=== PATIENT | male | born 1985 ===

== ENCOUNTER 2017-03-08 20:50 | Emergency (ER) | payer SELFPAY ==
[2017-03-08 20:51] VITALS: BMI 33.5
[2017-03-08 21:03] VITALS: BP 103/66; PULSE 70; TEMP 98.1; O2SAT 99
--- NOTE | 2017-03-08 21:33 | C.PDOC ---
History Of Present Illness Patient is a 31 year old male with a PMHx of lower back pain who presents to the ER with a complaint of lower back pain that worsens with movement and ambulation. Patient denies taking any medication at home and reports using percocet and lidoderm patch in the past for relief. 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 Patient denies incontinence of bladder or bowel, dysuria, hematuria, or recent injury. Time Seen by Provider: 03/08/17 21:15 Chief Complaint (Nursing): Back Pain History/Exam Limitations: no limitations Onset/Duration Of Symptoms: Hrs Current Symptoms Are (Timing): Still Present Previous Symptoms: Back Pain (Lower), Chronic Pain Associated Symptoms: denies: Incontinence, New Weakness, New Numbness Exacerbating Factor(s): Movement, Other (Walking) Recent travel outside of the [place]: No Past Medical History Reviewed: Historical Data, Nursing Documentation, Vital Signs Vital Signs: Last Vital Signs Temp 98.1 F 03/08/17 20:59 Pulse 70 03/08/17 20:59 Resp 20 03/08/17 22:31 BP 103/66 03/08/17 20:59 Pulse Ox 99 03/08/17 23:38 - Medical History PMH: Asthma, Back Problems (herniated disk), Kidney Stones, Chronic Kidney Disease, Sexually Transmitted Disease (Chalmydia) Surgical History: No Surg Hx Family History: States: Unknown Family Hx - Social History Hx Tobacco Use: No Hx Alcohol Use: Yes Hx Substance Use: No - Immunization History Hx Tetanus Toxoid Vaccination: No Hx Influenza Vaccination: No Hx Pneumococcal Vaccination: No Review Of Systems Genitourinary: Negative for: Dysuria, Incontinence, Hematuria Musculoskeletal: Positive for: Back Pain (Lower) Physical Exam - Physical Exam Appears: Well, Non-toxic Skin: Normal Color, Warm, Dry Head: Atraumatic, Normacephalic Eye(s): bilateral: Normal Inspection, PERRL Oral Mucosa: Moist Back: No CVA Tenderness, No Vertebral Tenderness, Paraspinal Tenderness (Right) , Other (Straight leg test positve at 40 degrees.) Extremity: Normal ROM, No Tenderness Pulses: Left Femoral: Normal, Right Femoral: Normal, Left Dorsalis Pedis: Normal , Right Dorsalis Pedis: Normal Neurological/Psych: Oriented x3, Normal Speech, Normal Motor, Normal Sensation Gait: Steady ED Course And Treatment O2 Sat by Pulse Oximetry: 99 (Room air) Pulse Ox Interpretation: Normal Progress Note: Toradol IM and valium PO administered. Patient has improved with medication, patient can ambulate with a steady gait. Will be discharged home and instructed to follow up with PMD. Disposition Counseled Patient/Family Regarding: Diagnosis, Need For Followup - Disposition Referrals: [facility] at [facility] [Outside] Disposition: HOME/ ROUTINE Disposition Time: 22:17 Condition: STABLE Additional Instructions: Take meds as directed Follow up with PMD or in clinic Return to ER if worse Prescriptions: diaZEpam [Valium] 5 mg PO TID #10 tab Naproxen [Naprosyn] 1 tab PO BID PRN #25 tab PRN Reason: Pain Instructions: Sciatica (ED) Forms: Work Excuse - Clinical Impression Clinical Impression: Sciatica - Scribe Statement The provider has reviewed the documentation as recorded by the Scribkehinde Ulloa All medical record entries made by the Carlosibkehinde were at my direction and personally dictated by me. I have reviewed the chart and agree that the record accurately reflects my personal performance of the history, physical exam, medical decision making, and the department course for this patient. I have also personally directed, reviewed, and agree with the discharge instructions and disposition.
[2017-03-08 22:32] VITALS: RESP 20
== END 2017-03-08 22:31 | disposition home or self-care (01) ==
LOC: C.ER 20:50
DX: M54.40 Lumbago with sciatica, unspecified side (principal)
CPT/HCPCS: 96372; 99283; J1885

== ENCOUNTER 2017-06-01 10:34 | Emergency (ER) | payer MEDICAID, OTHER ==
[2017-06-01 10:35] VITALS: BMI 33.5
[2017-06-01 11:30] LABS: RBC URINE 2 /hpf (0-3); URINE BILIRUBIN NEGATIVE (NEGATIVE); URINE BLOOD NEGATIVE (NEGATIVE); URINE COLOR Yellow (YELLOW); URINE GLUCOSE (UA) NORMAL (Normal); URINE KETONE TRACE mg/dL (NEGATIVE); URINE LEUKOCYTE ESTERASE 1+ Leu/uL (Negative); URINE PROTEIN NEGATIVE (NEGATIVE); WBC URINE 20 /hpf (0-5)
[2017-06-01 11:31] LABS: URINE CALCIUM OXALATE CRYSTALS FEW /hpf (<OCC)
[2017-06-01] MEDS ORDERED: cefTRIAXone (Rocephin) 250 mg Inj IM STA (11:41)
--- NOTE | 2017-06-01 12:22 | C.PDOC ---
History Of Present Illness 32 y/o male presents to the ED with complaints of penile irritation and discharge, dysuria for the past few days. Pt reports having unprotected intercourse with his boyfriend 2 weeks ago. Denies fever, chills, abdominal pain or any other complaints. Time Seen by Provider: 06/01/17 11:26 Chief Complaint (Nursing): Male Genitourinary History Per: Patient History/Exam Limitations: no limitations Onset/Duration Of Symptoms: Days Current Symptoms Are (Timing): Still Present Severity: Moderate Associated Symptoms: Urinary Symptoms. denies: Fever, Chills Alleviating Factors: None Recent travel outside of the [place]: No Past Medical History Reviewed: Historical Data, Nursing Documentation, Vital Signs Vital Signs: Last Vital Signs Temp 98 F 06/01/17 10:39 Pulse 66 06/01/17 10:39 Resp 20 06/01/17 10:39 BP 131/83 06/01/17 10:39 Pulse Ox 99 06/01/17 12:24 - Medical History PMH: Asthma, Back Problems (herniated disk), Kidney Stones, Chronic Kidney Disease, Sexually Transmitted Disease (Chalmydia) Family History: States: Unknown Family Hx - Social History Hx Tobacco Use: No Hx Alcohol Use: Yes Hx Substance Use: No - Immunization History Hx Tetanus Toxoid Vaccination: No Hx Influenza Vaccination: No Hx Pneumococcal Vaccination: No Review Of Systems Constitutional: Negative for: Fever, Chills Gastrointestinal: Negative for: Abdominal Pain Genitourinary: Positive for: Dysuria, Penile Discharge, Other (penile irritation ) Skin: Negative for: Rash Physical Exam - Physical Exam Appears: Non-toxic, No Acute Distress Skin: Warm, Dry, No Rash Head: Atraumatic, Normacephalic Chest: Symmetrical Cardiovascular: Rhythm Regular Respiratory: Normal Breath Sounds, No Rales, No Rhonchi, No Wheezing Gastrointestinal/Abdominal: Soft, No Tenderness Extremity: Bilateral: Atraumatic Neurological/Psych: Oriented x3, Normal Speech, Normal Cognition ED Course And Treatment O2 Sat by Pulse Oximetry: 99 (room air) Pulse Ox Interpretation: Normal Progress Note: Ordered UA, GC/chlamydia, urine culture, recephin and zithromax. Discharged home on cipro. Instructed to follow up with PMD in 3-4 days or return to ED if worsening symptoms. Disposition - Disposition Disposition: HOME/ ROUTINE Disposition Time: 12:17 Condition: STABLE Additional Instructions: Follow up in clinic within 2-3 days. Return to ED if feel worse. 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 - Scribe Statement The provider has reviewed the documentation as recorded by the Scribe Cristobal Escalera All medical record entries made by the Carlosibkehinde were at my direction and personally dictated by me. I have reviewed the chart and agree that the record accurately reflects my personal performance of the history, physical exam, medical decision making, and the department course for this patient. I have also personally directed, reviewed, and agree with the discharge instructions and disposition.
[2017-06-01 13:08] VITALS: BP 113/75; PULSE 61; RESP 18; TEMP 97.7
[2017-06-01 13:10] VITALS: O2SAT 99
== END 2017-06-01 12:25 | disposition home or self-care (01) ==
LOC: C.ER 10:34
DX: N34.2 Other urethritis (principal)
CPT/HCPCS: 81001; 87086; 87491; 87591; 96372; 99284; J0696

== ENCOUNTER 2017-08-16 13:40 | Emergency (ER) | payer MEDICAID, OTHER ==
[2017-08-16 13:41] VITALS: BMI 33.5
[2017-08-16 13:45] VITALS: TEMP 98
[2017-08-16] MEDS ORDERED: cefTRIAXone (Rocephin) 250 mg Inj IM STA (13:51)
--- NOTE | 2017-08-16 13:53 | C.PDOC ---
History Of Present Illness 32 y/o M p/w penile irritation and dysuria. Patient states went to STD clinic yesterday and had tests performed, no results yet but dysuria became worse today. Denies fever, vomiting, dyspnea, back pain, testicular pain. Time Seen by Provider: 08/16/17 13:49 Chief Complaint (Nursing): Male Genitourinary Past Medical History Vital Signs: Last Vital Signs Temp 98 F 08/16/17 13:44 Pulse 82 08/16/17 13:44 Resp 16 08/16/17 13:44 BP 109/71 08/16/17 13:44 Pulse Ox 99 08/16/17 13:53 - Medical History PMH: Asthma, Back Problems (herniated disk), Kidney Stones, Chronic Kidney Disease, Sexually Transmitted Disease (Chalmydia) Family History: States: Unknown Family Hx - Social History Hx Tobacco Use: No Hx Alcohol Use: Yes Hx Substance Use: No - Immunization History Hx Tetanus Toxoid Vaccination: No Hx Influenza Vaccination: No Hx Pneumococcal Vaccination: No Review Of Systems Except As Marked, All Systems Reviewed And Found Negative. Constitutional: Negative for: Fever Respiratory: Negative for: Shortness of Breath Physical Exam - Physical Exam Appears: Non-toxic Skin: No Rash Head: Normacephalic Oral Mucosa: Moist Respiratory: No Accessory Muscle Use Gastrointestinal/Abdominal: Soft, No Tenderness Back: No CVA Tenderness Extremity: No Tenderness, No Swelling Neurological/Psych: Normal Speech, Normal Cognition Gait: Steady ED Course And Treatment O2 Sat by Pulse Oximetry: 99 Medical Decision Making Medical Decision Making: Will treat empirically for GC/Chlamydia. Instructed patient to follow up with STD clinic results for other STDs that may require treatment. Instructed to return to ED for worsening pain, fever, vomiting. Disposition - Disposition Disposition: HOME/ ROUTINE Disposition Time: 13:52 Condition: STABLE Instructions: Sexually Transmitted Diseases (ED) Forms: [employer] (Canadian) - Clinical Impression Clinical Impression: Urethritis
[2017-08-16 14:32] VITALS: BP 119/68; PULSE 75; RESP 18; O2SAT 98
== END 2017-08-16 14:32 | disposition home or self-care (01) ==
LOC: C.ER 13:40
DX: N34.2 Other urethritis (principal)
CPT/HCPCS: 96372; 99284; J0696

== ENCOUNTER 2017-09-19 21:47 | Emergency (ER) | payer MEDICAID ==
[2017-09-19 21:47] VITALS: BMI 33.5
[2017-09-19 21:56] VITALS: BP 105/74; PULSE 93; TEMP 97.7; O2SAT 97
[2017-09-19] MEDS ORDERED: Albuterol-Ipratrop 3 mg / 0.5 (3 ml) UD ONE ×2 (21:59→23:01)
[2017-09-19 22:09] VITALS: RESP 30
[2017-09-19] MEDS ORDERED: Albuterol-Ipratrop 3 mg / 0.5 (3 ml) UD IH SCH (22:45)
--- NOTE | 2017-09-19 23:25 | C.PDOC ---
History Of Present Illness 32 year old male with a Hx of asthma presents to the ED with cough which is associated with wheezing and subjective fever. 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 Patient reports that his symptoms exacerbated after being out in the cold weather. Denies vomiting, diarrhea, travel, chest pain, SOB. Time Seen by Provider: 09/19/17 22:10 Chief Complaint (Nursing): Shortness Of Breath History Per: Patient History/Exam Limitations: no limitations Onset/Duration Of Symptoms: Hrs Current Symptoms Are (Timing): Still Present Initiating Event: Upper Respiratory Illness Exacerbating Factor(s): Exertion Associated Symptoms: Fever. denies: Chills, Chest Pain, Dizziness Recent travel outside of the [place]: No Additional History Per: Patient Past Medical History Reviewed: Historical Data, Nursing Documentation, Vital Signs Vital Signs: Last Vital Signs Temp 97.7 F 09/19/17 21:53 Pulse 93 H 09/19/17 21:53 Resp 30 H 09/19/17 22:04 BP 105/74 09/19/17 21:53 Pulse Ox 97 09/20/17 05:15 - Medical History PMH: Asthma, Back Problems (herniated disk), Kidney Stones, Chronic Kidney Disease, Sexually Transmitted Disease (Chalmydia) Surgical History: No Surg Hx Family History: States: Unknown Family Hx - Social History Hx Tobacco Use: No Hx Alcohol Use: Yes Hx Substance Use: No - Immunization History Hx Tetanus Toxoid Vaccination: No Hx Influenza Vaccination: No Hx Pneumococcal Vaccination: No Review Of Systems Except As Marked, All Systems Reviewed And Found Negative. Constitutional: Positive for: Fever. Negative for: Chills Cardiovascular: Negative for: Chest Pain, Palpitations Respiratory: Positive for: Cough. Negative for: Shortness of Breath, Sputum Gastrointestinal: Negative for: Nausea, Vomiting, Abdominal Pain Neurological: Negative for: Weakness, Numbness Physical Exam - Physical Exam Appears: Non-toxic, No Acute Distress Skin: Normal Color, Warm, Dry, No Rash Head: Atraumatic, Normacephalic Eye(s): bilateral: Normal Inspection, PERRL, EOMI Nose: Normal, No Discharge Oral Mucosa: Moist Throat: Normal, No Erythema, No Exudate Neck: Normal ROM, Supple Chest: Symmetrical, No Tenderness Cardiovascular: Rhythm Regular, No Friction Rub, No Murmur Respiratory: No Accessory Muscle Use, No Stridor, Wheezing (Mild bilateral ) Gastrointestinal/Abdominal: Soft, No Tenderness Extremity: Normal ROM, No Pedal Edema, No Calf Tenderness, No Swelling Neurological/Psych: Oriented x3, Normal Speech, Normal Cognition, Normal Motor, Normal Sensation Gait: Steady ED Course And Treatment O2 Sat by Pulse Oximetry: 97 (On RA) Pulse Ox Interpretation: Normal Medical Decision Making Medical Decision Making: Plan: * Albuterol 3 mL INH given * Prednisone 60 mg PO given * Nebulizer treatment given On re-exam, the patient rpeorts improvement of symptoms. Lungs are CTA, heart is RRR, ambulatory in the ED with steady. Abdomen is soft, non-tender and the patient is tolerating PO well. Disposition - Disposition Referrals: [facility] at [facility] [Outside] Disposition: HOME/ ROUTINE Disposition Time: 23:23 Condition: GOOD Additional Instructions: Follow up with the medical doctor within 1-2 days. return if worsened. 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 - Scribe Statement The provider has reviewed the documentation as recorded by the Scribe Elmer Denson All medical record entries made by the Scribe were at my direction and personally dictated by me. I have reviewed the chart and agree that the record accurately reflects my personal performance of the history, physical exam, medical decision making, and the department course for this patient. I have also personally directed, reviewed, and agree with the discharge instructions and disposition.
== END 2017-09-19 23:29 | disposition home or self-care (01) ==
LOC: C.ER 21:47
DX: J45.909 Unspecified asthma, uncomplicated (principal); J06.9 Acute upper respiratory infection, unspecified

== ENCOUNTER 2017-10-20 23:51 | Emergency (ER) | payer MEDICAID ==
[2017-10-20 23:51] VITALS: BMI 33.5
[2017-10-20 23:59] VITALS: BP 131/73; PULSE 84; RESP 20; TEMP 98.3; O2SAT 95
--- NOTE | 2017-10-21 00:05 | C.PDOC ---
History Of Present Illness 32 yo male with h/o asthma c/o left eye discharge and nasal congestion since yesterday. Pt notes his left eye had discharge and was itchy, he applied tea bags and it has improved. Also notes he had persistent nasal congestion and occasional cough since yesterday. (+) smoke. Denies fever, sob, chest pain, difficulty breathing, difficulty swallowing or any other complaints. Time Seen by Provider: 10/20/17 23:58 Chief Complaint (Nursing): Cough, Cold, Congestion History Per: Patient History/Exam Limitations: no limitations Onset/Duration Of Symptoms: Days Current Symptoms Are (Timing): Better Past Medical History Vital Signs: Last Vital Signs Temp 98.3 F 10/20/17 23:57 Pulse 84 10/20/17 23:57 Resp 20 10/20/17 23:57 BP 131/73 10/20/17 23:57 Pulse Ox 95 10/21/17 00:05 - Medical History PMH: Asthma, Back Problems (herniated disk), Kidney Stones, Chronic Kidney Disease, Sexually Transmitted Disease (Chalmydia) Family History: States: Unknown Family Hx - Social History Hx Tobacco Use: No Hx Alcohol Use: Yes Hx Substance Use: No - Immunization History Hx Tetanus Toxoid Vaccination: No Hx Influenza Vaccination: No Hx Pneumococcal Vaccination: No Review Of Systems Except As Marked, All Systems Reviewed And Found Negative. Physical Exam - Physical Exam Appears: Well, Non-toxic, No Acute Distress Skin: Normal Color, Warm, Dry Head: Atraumatic, Normacephalic Eye(s): bilateral: Normal Inspection, PERRL, EOMI Ear(s): Bilateral: Normal Nose: Other ((+) nasal congestion) Throat: Normal, No Erythema, No Exudate, No Drooling Neck: Normal, Normal ROM, Supple Lymphatic: Normal Exam Chest: Symmetrical Cardiovascular: Rhythm Regular Respiratory: Normal Breath Sounds, No Accessory Muscle Use, No Wheezing Back: Normal Inspection Extremity: Normal ROM Neurological/Psych: Oriented x3, Normal Speech ED Course And Treatment O2 Sat by Pulse Oximetry: 95 Progress Note: Discussed smoking cessation and symptomatic treatment. Discussed currently no signs of conjunctivitis, if returns tomorrow, fill RX for eye drops. Discussed signs of concern and instructed to return to ERif they arise. Disposition - Disposition Disposition: HOME/ ROUTINE Disposition Time: 00:03 Condition: STABLE Additional Instructions: Follow up with your primary medical doctor or clinic in 2-5 days for further evaluation. Take medications as prescribed. Return to the emergency department at any time if symptoms persist or worsen. Prescriptions: Fluticasone Nasal [Flonase] 1 actuation NS DAILY #1 spr Guaifen/Dextromethorphan/PE [Mucinex Fast-Max Congest-Cough] 1 each PO Q6 #20 tablet Tobramycin 0.3% [Tobramycin 5 Ml] 1 drop OP Q4 #1 bottle Instructions: Upper Respiratory Infection (ED) Forms: [employer] (Bahraini), Work Excuse - Clinical Impression Clinical Impression: Upper respiratory infection
== END 2017-10-21 00:20 | disposition home or self-care (01) ==
LOC: C.ER 23:51
DX: J06.9 Acute upper respiratory infection, unspecified (principal)

== ENCOUNTER 2017-11-09 11:56 | Emergency (ER) | payer MEDICAID ==
[2017-11-09 11:56] VITALS: BMI 33.5
--- NOTE | 2017-11-09 12:21 | C.PDOC ---
History Of Present Illness 32 y/o male with hx herniated lumbar disks c/o lower back pain that started last night after lifting a mattress. pain doesn't radiate to legs, denies saddle anesthesia, no bladder or bowel incontinence, no numbness, tingling or lower extremity weakness. pt used a lidocaine patch last night without improvement, Time Seen by Provider: 11/09/17 12:08 Chief Complaint (Nursing): Back Pain History/Exam Limitations: no limitations Onset/Duration Of Symptoms: Days (1) Current Symptoms Are (Timing): Still Present Quality Of Discomfort: "Pain" Severity: Moderate Previous Symptoms: Back Pain Associated Symptoms: denies: Incontinence, New Weakness, New Numbness Exacerbating Factor(s): Movement, Sitting Past Medical History Reviewed: Historical Data, Nursing Documentation, Vital Signs Vital Signs: Last Vital Signs Temp 98.5 F 11/09/17 11:57 Pulse 94 H 11/09/17 11:57 Resp 18 11/09/17 11:57 BP 133/83 11/09/17 11:57 Pulse Ox 95 11/09/17 12:53 - Medical History PMH: Asthma, Back Problems (herniated disk), Kidney Stones, Chronic Kidney Disease, Sexually Transmitted Disease (Chalmydia) Family History: States: Unknown Family Hx - Social History Hx Tobacco Use: No Hx Alcohol Use: No Hx Substance Use: No - Immunization History Hx Tetanus Toxoid Vaccination: No Hx Influenza Vaccination: No Hx Pneumococcal Vaccination: No Review Of Systems Constitutional: Negative for: Fever, Chills Cardiovascular: Negative for: Chest Pain Gastrointestinal: Negative for: Abdominal Pain Genitourinary: Negative for: Incontinence Musculoskeletal: Positive for: Back Pain Neurological: Negative for: Weakness, Numbness Physical Exam - Physical Exam Appears: Non-toxic, Other (uncomfortable) Skin: Warm, Dry Head: Atraumatic, Normacephalic Neck: No Midline Cervical Tenderness, Supple Gastrointestinal/Abdominal: Bowel Sounds, Soft, No Tenderness Back: Normal Inspection, No CVA Tenderness, Paraspinal Tenderness (bilateral lumbar area) Extremity: Normal ROM, No Tenderness, No Calf Tenderness, No Swelling Neurological/Psych: Oriented x3, Normal Speech, Normal Cognition, Normal Motor, Normal Sensation ED Course And Treatment O2 Sat by Pulse Oximetry: 95 Medical Decision Making Medical Decision Making: pt with bilateral lumbar tenderness/pain s/p heavy lifting last night. no weakness, numbness. toradol and tylenol given, will d/c with nsaids, tylenol and muscled rerlaxant; pt drove to hospital today and will drive home by himself. will get rx of muscle relaxant to take once at home. Disposition Counseled Patient/Family Regarding: Diagnosis, Need For Followup, Rx Given - Disposition Referrals: [facility] at [facility] [Outside] Disposition: HOME/ ROUTINE Disposition Time: 13:04 Condition: IMPROVED Additional Instructions: Take medications as prescribed. No driving with muscle relaxant. You may also use lidoderm patches that you have at home. No heavy lifting. Warm or cold compresses to painful area several times a day. Follow up wiht your doctor or in medical clinic in the next few days. Return to ER for any worsening symptoms. Prescriptions: Acetaminophen [Tylenol 325mg tab] 650 mg PO Q6 #50 tab Cyclobenzaprine [Cyclobenzaprine HCl] 10 mg PO Q8 #9 tab Ibuprofen [Motrin] 600 mg PO TID #30 tab Instructions: Back Pain (ED) Forms: [facility] (Sami), General Discharge Instructions - Clinical Impression Clinical Impression: Lumbar sprain
[2017-11-09 13:13] VITALS: BP 124/88; PULSE 78; RESP 16; TEMP 97.6
[2017-11-09 14:03] VITALS: O2SAT 95
== END 2017-11-09 13:16 | disposition home or self-care (01) ==
LOC: C.ER 11:56
DX: S33.5XXA Sprain of ligaments of lumbar spine, initial encounter (principal); X50.0XXA Overexertion from strenuous movement or load, initial encounter
CPT/HCPCS: 96372; 99284; J1885

== ENCOUNTER 2017-11-11 13:02 | Emergency (ER) | payer MEDICAID ==
[2017-11-11 13:02] VITALS: BMI 33.5
[2017-11-11 13:07] VITALS: RESP 18; TEMP 97.6
[2017-11-11] MEDS ORDERED: Dexamethasone 4 mg/1 ml IM STA (13:54)
[2017-11-11] MEDS ORDERED: Lidocaine 5% Patch TD STA (13:55)
[2017-11-11] MEDS ORDERED: Dexamethasone 4 mg/1 ml ONE (14:02)
[2017-11-11] MEDS ORDERED: Lidocaine 5% Patch TD ONE (14:02)
--- NOTE | 2017-11-11 14:35 | C.PDOC ---
History Of Present Illness 32 y/o male presents to the ER complaining of pain in the lower right back which has been present for the past 5 days. Patient reports that he was moving heavy furniture when he slipped and fell hitting his lower back. Patient states that he came to [facility] 2 days ago for the pain and was given medications. He reports that the pain is still present. Patient denies any numbness, weakness, bowel and bladder incontinence, abdominal pain, dysuria, fall, and trauma. Time Seen by Provider: 11/11/17 13:18 Chief Complaint (Nursing): Pain, Chronic History Per: Patient History/Exam Limitations: no limitations Onset/Duration Of Symptoms: Days Current Symptoms Are (Timing): Still Present Severity: Moderate Past Medical History Reviewed: Historical Data, Nursing Documentation, Vital Signs Vital Signs: Last Vital Signs Temp 97.6 F 11/11/17 13:04 Pulse 88 11/11/17 14:43 Resp 18 11/11/17 14:43 BP 140/66 11/11/17 14:43 Pulse Ox 99 11/11/17 22:11 - Medical History PMH: Asthma, Back Problems (herniated disk), Kidney Stones, Chronic Kidney Disease, Sexually Transmitted Disease (Chalmydia) Surgical History: No Surg Hx Family History: States: No Known Family Hx - Social History Hx Tobacco Use: No Hx Alcohol Use: No Hx Substance Use: No - Immunization History Hx Tetanus Toxoid Vaccination: No Hx Influenza Vaccination: No Hx Pneumococcal Vaccination: No Review Of Systems Except As Marked, All Systems Reviewed And Found Negative. Gastrointestinal: Negative for: Abdominal Pain Genitourinary: Negative for: Dysuria, Incontinence Musculoskeletal: Positive for: Back Pain (lower right back pain) Neurological: Negative for: Weakness, Numbness Physical Exam - Physical Exam Appears: Non-toxic, No Acute Distress Skin: Normal Color, Warm, No Rash Head: Atraumatic, Normacephalic Eye(s): bilateral: Normal Inspection, PERRL, EOMI Nose: Normal Oral Mucosa: Moist Neck: Normal ROM, Supple Chest: Symmetrical Cardiovascular: Rhythm Regular, No Friction Rub, No Murmur Respiratory: Normal Breath Sounds, No Accessory Muscle Use Gastrointestinal/Abdominal: Normal Exam, Soft, No Tenderness Back: No CVA Tenderness, Muscle Spasm, Paraspinal Tenderness (right-sided paralumbar tenderness) Extremity: Normal ROM, No Swelling Neurological/Psych: Oriented x3, Normal Speech, Normal Cognition, Normal Motor, Normal Sensation Gait: Steady ED Course And Treatment O2 Sat by Pulse Oximetry: 99 (RA) Pulse Ox Interpretation: Normal Medical Decision Making Medical Decision Making: Plan: --Decadron 8 mg IM --Toradol 30 mg IM On re-exam, the patient reports improvement of symptoms. Lungs are CTA, heart is RRR, abdomen is soft, non-tender and patient is tolerating PO well. Follow up with the medical doctor within 1-2 days. return if worsened Disposition - Disposition Referrals: [facility] at [facility] [Outside] Disposition: HOME/ ROUTINE Disposition Time: 14:36 Condition: STABLE Additional Instructions: Follow up with the medical doctor within 1-2 days. 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 - Scribe Statement The provider has reviewed the documentation as recorded by the Rogers Yepez Provider Attestation All medical record entries made by the Carlosibe were at my direction and personally dictated by me. I have reviewed the chart and agree that the record accurately reflects my personal performance of the history, physical exam, medical decision making, and the department course for this patient. I have also personally directed, reviewed, and agree with the discharge instructions and disposition.
[2017-11-11 14:44] VITALS: BP 140/66; PULSE 88
[2017-11-11 15:22] VITALS: O2SAT 99
== END 2017-11-11 14:43 | disposition home or self-care (01) ==
LOC: C.ER 13:02
DX: S39.012D Strain of muscle, fascia and tendon of lower back, subsequent encounter (principal); W01.0XXD Fall on same level from slipping, tripping and stumbling without subsequent striking against object, subsequent encounter
CPT/HCPCS: 96372; 99285; J1100; J1885

== ENCOUNTER 2017-12-03 14:36 | Emergency (ER) | payer MEDICAID ==
[2017-12-03 14:37] VITALS: BMI 33.5
[2017-12-03 15:33] VITALS: BP 116/80; PULSE 72; RESP 18; TEMP 98.4; O2SAT 98
== END 2017-12-03 16:41 | disposition left against medical advice (07) ==
LOC: C.ER 14:36
DX: Z02.89 Encounter for other administrative examinations (principal)

== ENCOUNTER 2017-12-06 16:50 | Emergency (ER) | payer MEDICAID ==
[2017-12-06 16:58] VITALS: BMI 37.8
[2017-12-06 16:59] VITALS: BP 120/80; PULSE 75; RESP 18; TEMP 98.3; O2SAT 96
[2017-12-06] MEDS ORDERED: cefTRIAXone (Rocephin) 250 mg Inj IM STA (17:26)
--- NOTE | 2017-12-06 17:26 | C.PDOC ---
History Of Present Illness 32 year old male presents to the ER complaining of dysuria with associated suprapubic pressure-like pain for 4 days, and yellow penile discharge since yesterday. He reports he is sexually active with recent encounter where the condom broke. He denies having any fever, flank pain, scrotal or testicular pain. Time Seen by Provider: 12/06/17 17:21 Chief Complaint (Nursing): Male Genitourinary History Per: Patient History/Exam Limitations: no limitations Onset/Duration Of Symptoms: Days Current Symptoms Are (Timing): Still Present Severity: Moderate Past Medical History Reviewed: Historical Data, Nursing Documentation, Vital Signs Vital Signs: Last Vital Signs Temp 98.3 F 12/06/17 16:58 Pulse 75 12/06/17 16:58 Resp 18 12/06/17 16:58 BP 120/80 12/06/17 16:58 Pulse Ox 96 12/06/17 17:43 - Medical History PMH: Asthma, Back Problems (herniated disk), Kidney Stones, Chronic Kidney Disease, Sexually Transmitted Disease (Chalmydia) Surgical History: No Surg Hx Family History: States: No Known Family Hx - Social History Hx Tobacco Use: No Hx Alcohol Use: Yes Hx Substance Use: Yes - Immunization History Hx Tetanus Toxoid Vaccination: No Hx Influenza Vaccination: No Hx Pneumococcal Vaccination: No Review Of Systems Constitutional: Negative for: Fever, Weakness, Malaise Cardiovascular: Negative for: Palpitations Respiratory: Negative for: Cough, Shortness of Breath Gastrointestinal: Negative for: Vomiting, Abdominal Pain, Diarrhea Genitourinary: Positive for: Dysuria, Penile Discharge (yellow penile discharge) . Negative for: Scrotal Pain Skin: Negative for: Rash Neurological: Negative for: Headache Physical Exam - Physical Exam Appears: Well, Non-toxic, No Acute Distress Skin: Normal Color, Warm Head: Atraumatic, Normacephalic Eye(s): bilateral: Normal Inspection Nose: Normal Oral Mucosa: Moist Neck: Supple Chest: Symmetrical Cardiovascular: Rhythm Regular Respiratory: Normal Breath Sounds, No Accessory Muscle Use, No Rales, No Rhonchi , No Wheezing Gastrointestinal/Abdominal: Normal Exam, Soft, No Tenderness, No Distention, No Guarding Back: Normal Inspection, No CVA Tenderness Male Genital: Normal Inspection, No Testicular Tenderness, No Testicular Swelling, No Scrotal Swelling, Circumcised Extremity: Normal ROM Neurological/Psych: Oriented x3, Normal Speech Gait: Steady ED Course And Treatment O2 Sat by Pulse Oximetry: 96 (RA) Pulse Ox Interpretation: Normal Medical Decision Making Medical Decision Making: Patient with penile discharge and dysuria and recent sexual encounter where condom broke. Genital exam chaperoned by TRESSA Marie, and no discharge, swelling, rash or other abnormality. Urine collected and cultures sent to lab. Will treat prophylactically for STD with Rocephin and Zithromax. Patient given follow up instructions and to avoid intercourse and contact sexual partners, as they may need treatment. Disposition Counseled Patient/Family Regarding: Diagnosis, Need For Followup - Disposition Referrals: [facility] [Outside] Disposition: HOME/ ROUTINE Disposition Time: 17:50 Condition: STABLE Additional Instructions: You have been treated for STD with Rocephin and Zithromax Culture was sent to lab, call back for results in 2-3 days for results to confirm test. [phone] or [phone]. 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 - Scribe Statement The provider has reviewed the documentation as recorded by the Rogers Yepez Provider Attestation All medical record entries made by the Rogers were at my direction and personally dictated by me. I have reviewed the chart and agree that the record accurately reflects my personal performance of the history, physical exam, medical decision making, and the department course for this patient. I have also personally directed, reviewed, and agree with the discharge instructions and disposition.
[2017-12-06 17:38] LABS: URINE BILIRUBIN SMALL (NEGATIVE); URINE BLOOD NEGATIVE (NEGATIVE); URINE CLARITY CLEAR (Clear); URINE COLOR YELLOW (YELLOW); URINE GLUCOSE (UA) NEGATIVE (Normal)
[2017-12-06 17:39] LABS: URINE LEUKOCYTE ESTERASE NEGATIVE Leu/uL (Negative); URINE NITRATE NEGATIVE (NEGATIVE); URINE PROTEIN NEGATIVE (NEGATIVE); URINE UROBILINOGEN 0.2 mg/dL (0.2-1.0)
== END 2017-12-06 17:59 | disposition home or self-care (01) ==
LOC: C.ER 16:50
DX: N34.2 Other urethritis (principal)
CPT/HCPCS: 81001; 87491; 87591; 96372; 99284; J0696

== ENCOUNTER 2017-12-13 21:15 | Emergency (ER) | payer MEDICAID ==
[2017-12-13 21:16] VITALS: BMI 37.8
[2017-12-13 22:07] VITALS: BP 112/68; PULSE 81; RESP 20; TEMP 98.5; O2SAT 96
--- NOTE | 2017-12-13 23:48 | C.PDOC ---
History Of Present Illness Patient is a 32 year old male who was seen last week for STD and treated in the ER. States he is continuing to have dysuria. Also complaining of a headache for the past 2 days. Did not take any medications for symptom relief prior to arrival. Denies any fever, URI symptoms, abdominal pain, hematuria, dizziness, nausea, or vomiting. Patient reports history of migraines, which usually resolve when he goes to sleep. PMD: Non [facility] provider Time Seen by Provider: 12/13/17 22:34 Chief Complaint (Nursing): Male Genitourinary History Per: Patient History/Exam Limitations: no limitations Onset/Duration Of Symptoms: Days (x 1 week) Current Symptoms Are (Timing): Still Present Past Medical History Reviewed: Historical Data, Nursing Documentation, Vital Signs Vital Signs: Last Vital Signs Temp 98.5 F 12/13/17 22:02 Pulse 81 12/13/17 22:02 Resp 20 12/13/17 22:02 BP 112/68 12/13/17 22:02 Pulse Ox 96 12/13/17 23:58 - Medical History PMH: Asthma, Back Problems (herniated disk), Kidney Stones, Chronic Kidney Disease, Sexually Transmitted Disease (Chalmydia) Family History: States: No Known Family Hx - Social History Hx Tobacco Use: No Hx Alcohol Use: No Hx Substance Use: No - Immunization History Hx Tetanus Toxoid Vaccination: No Hx Influenza Vaccination: No Hx Pneumococcal Vaccination: No Review Of Systems Constitutional: Negative for: Fever, Chills ENT: Negative for: Nose Discharge, Nose Congestion Respiratory: Negative for: Cough Gastrointestinal: Negative for: Nausea, Vomiting, Abdominal Pain Genitourinary: Positive for: Dysuria. Negative for: Hematuria Neurological: Positive for: Headache. Negative for: Dizziness Physical Exam - Physical Exam Appears: Non-toxic, No Acute Distress Skin: Normal Color, Warm, Dry Head: Atraumatic, Normacephalic Eye(s): bilateral: Normal Inspection, PERRL, EOMI Oral Mucosa: Moist Neck: Normal ROM, Supple Chest: Symmetrical Respiratory: No Accessory Muscle Use Gastrointestinal/Abdominal: Normal Exam, Soft, No Tenderness Male Genital: Other (Patient declined genital exam) Extremity: Normal ROM Neurological/Psych: Oriented x3, Normal Speech ED Course And Treatment O2 Sat by Pulse Oximetry: 96 (RA) Pulse Ox Interpretation: Normal Progress Note: Reviewed genital cultures, positive for gonorrhea. Based on patient's symptoms, will d/c with doxycycline for 10 days. Patient given Motrin in ER for headache with improved symptoms. Reevaluation Time: 00:13 Reassessment Condition: Improved Disposition - Disposition Referrals: 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 - Scribe Statement The provider has reviewed the documentation as recorded by the Scribe (Rhiannon Eldridge) All medical record entries made by the Scribe were at my direction and personally dictated by me. I have reviewed the chart and agree that the record accurately reflects my personal performance of the history, physical exam, medical decision making, and the department course for this patient. I have also personally directed, reviewed, and agree with the discharge instructions and disposition.
== END 2017-12-14 00:36 | disposition home or self-care (01) ==
LOC: C.ER 21:15
DX: A54.01 Gonococcal cystitis and urethritis, unspecified (principal); G43.909 Migraine, unspecified, not intractable, without status migrainosus

== ENCOUNTER 2018-03-08 14:37 | Emergency (ER) | payer MEDICAID ==
[2018-03-08 14:37] VITALS: BMI 37.8
[2018-03-08 15:09] VITALS: BP 123/79; PULSE 85; RESP 16; TEMP 98.1; O2SAT 97
--- NOTE | 2018-03-08 15:29 | C.PDOC ---
History Of Present Illness 32 year old male presents to the ED c/o left eye discharge, intermittent temporal area pain since yesterday. Patient still c.o pain to left temporal area worse with palpation. Patient had a history of migraines but states current pain feel different than usual. Patient reports having light sensitivity. Patient took motrin at 08:00 with no improvement of symptoms. Patient denies vision loss, eye pain, FB sensation, contact use, other associated symptoms. L EYE DISCHARGE, TEMPORAL AREA PAIN SINCE YEST. INTERMIT. NO VISION LOSS, EYE REDNESS. CO PERSIST PAIN L TEMPORAL AREA, WORSE W PALPATION. HO MIGRAINES BUT CURRENT PAIN DIF THAN USUAL. +LIGHT SENSITIVITY. NO IMPROVE W MOTRIN @ 0800. DENIES EYE PAIN, FB SENSATION, CONTACTS USE. DENIES OTHER ASSOC SX EXAM MILD DIST NONTOXIC HEENT R EYE WNL; L EYE NO CONJUNCTIVITIS, PERIORB WNL; +FOCAL LIGHT SENSITIVITY L EYE, PERRLA; EOMI; +TEND L TEMPORAL AREA, NO SWELL PALP MASS NEURO INTACT SKIN NO LESIONS REMAINDER NEG Time Seen by Provider: 03/08/18 15:14 Chief Complaint (Nursing): Eye Problem History Per: Patient History/Exam Limitations: no limitations Onset/Duration Of Symptoms: Days (1) Current Symptoms Are (Timing): Still Present Recent travel outside of the [place]: No Additional History Per: Patient Past Medical History Reviewed: Historical Data, Nursing Documentation, Vital Signs Vital Signs: Last Vital Signs Temp 98.1 F 03/08/18 15:06 Pulse 85 03/08/18 15:06 Resp 16 03/08/18 15:06 BP 123/79 03/08/18 15:06 Pulse Ox 97 03/08/18 16:44 - Medical History PMH: Asthma, Back Problems (herniated disk), Kidney Stones, Chronic Kidney Disease, Sexually Transmitted Disease (Chalmydia) Surgical History: No Surg Hx Family History: States: Unknown Family Hx - Social History Hx Tobacco Use: No Hx Alcohol Use: Yes Hx Substance Use: Yes - Immunization History Hx Tetanus Toxoid Vaccination: Yes Hx Influenza Vaccination: No Hx Pneumococcal Vaccination: No Review Of Systems Constitutional: Negative for: Fever, Chills Eyes: Positive for: Pain ENT: Negative for: Nose Discharge, Nose Congestion Cardiovascular: Negative for: Chest Pain Respiratory: Negative for: Cough, Shortness of Breath Gastrointestinal: Negative for: Nausea, Vomiting Musculoskeletal: Negative for: Neck Pain Skin: Negative for: Rash Neurological: Positive for: Headache. Negative for: Dizziness Physical Exam - Physical Exam Appears: Non-toxic, In Acute Distress Skin: Normal Color, Warm, Dry, Other (no lesions) Head: Atraumatic, Normacephalic, Tenderness (left temporal area), No Swelling, Other (no palpable mass) Eye(s): bilateral: PERRL, EOMI, right: Normal Inspection, left: Other (no conjuctivitis. + light sensitivity) Ear(s): Bilateral: Normal Nose: No Discharge Oral Mucosa: Moist Neck: Normal ROM, Supple Chest: Symmetrical Cardiovascular: Rhythm Regular, No Murmur Respiratory: Normal Breath Sounds, No Rales, No Rhonchi, No Wheezing Extremity: Normal ROM, No Tenderness, No Swelling Neurological/Psych: Oriented x3, Normal Motor, Normal Sensation, Other (No focal deficits) Gait: Steady ED Course And Treatment O2 Sat by Pulse Oximetry: 97 (On RA) Pulse Ox Interpretation: Normal - CT Scan/US CT head Other Rad Studies (CT/US): Read By Radiologist, Radiology Report Reviewed CT/US Interpretation: FINDINGS: HEMORRHAGE: No intracranial hemorrhage. BRAIN : Brewer-white matter differentiation is preserved. There is no mass, mass effect or abnormal extra-axial fluid collection. There is no territorial infarction. VENTRICLES: The ventricles are normal in size, shape and configuration. CALVARIUM: The skullbase and calvarium are normal. PARANASAL SINUSES: Predominantly clear. MASTOID AIR CELLS: Predominantly clear. OTHER FINDINGS: None. IMPRESSION: No acute intracranial abnormality. Reevaluation Time: 16:43 Reassessment Condition: Improved (NEURO INTACT) Medical Decision Making Medical Decision Making: Plan: * CT head * Compazine 10 mg IM * Imitrex 6 mg SC * Toradol 60 mg IM * Tylenol 650 mg PO Disposition Counseled Patient/Family Regarding: Studies Performed, Diagnosis, Need For Followup - Disposition Referrals: YOUR,PMD [Other] Disposition: HOME/ ROUTINE Disposition Time: 16:43 Condition: IMPROVED Prescriptions: Polymyxin/Trimethoprim Sulfate [Polytrim Ophth Soln] 1 drop OD Q3H #1 bottle Instructions: Conjunctivitis (Pinkeye) (DC), Headache, Adult (DC) Forms: [employer] (Tajik), Work Excuse - Clinical Impression Clinical Impression: Headache, Conjunctivitis - Scribe Statement The provider has reviewed the documentation as recorded by the Scribe Elmer Denson All medical record entries made by the Carlosibe were at my direction and personally dictated by me. I have reviewed the chart and agree that the record accurately reflects my personal performance of the history, physical exam, medical decision making, and the department course for this patient. I have also personally directed, reviewed, and agree with the discharge instructions and disposition.
--- NOTE | 2018-03-08 16:26 | CT ---
PROCEDURE: CT HEAD WITHOUT CONTRAST. HISTORY: Left temporal headache COMPARISON: None available. TECHNIQUE: Axial computed tomography images were obtained through the head/brain without intravenous contrast. Radiation dose: Total exam DLP = 967.81 mGy-cm. This CT exam was performed using one or more of the following dose reduction techniques: Automated exposure control, adjustment of the mA and/or kV according to patient size, and/or use of iterative reconstruction technique. FINDINGS: HEMORRHAGE: No intracranial hemorrhage. BRAIN: Brewer-white matter differentiation is preserved. There is no mass, mass effect or abnormal extra-axial fluid collection. There is no territorial infarction. VENTRICLES: The ventricles are normal in size, shape and configuration. CALVARIUM: The skullbase and calvarium are normal. PARANASAL SINUSES: Predominantly clear. MASTOID AIR CELLS: Predominantly clear. OTHER FINDINGS: None. IMPRESSION: No acute intracranial abnormality.
== END 2018-03-08 17:05 | disposition home or self-care (01) ==
LOC: C.ER 14:37
DX: R51 Headache (principal); H10.9 Unspecified conjunctivitis
CPT/HCPCS: 70450; 96372; 99283; J0780; J1885; J3030

== ENCOUNTER 2018-04-09 20:19 | Emergency (ER) | payer MEDICAID ==
[2018-04-09 20:19] VITALS: BMI 37.8
[2018-04-09 20:27] VITALS: BP 109/73; PULSE 87; RESP 16; TEMP 98.5; O2SAT 98
--- NOTE | 2018-04-09 22:03 | C.PDOC ---
History Of Present Illness 33 year old male with PMHx of chronic back pain presents to the ED c/o exacerbation of his usual lower back pain. Patient reports the symptoms feel similar to previous episodes. Patient took his last Naproxen tab last night. Patient denies CP, SOB, abdominal pain, diarrhea, urinary/bowel incontinence, saddle anesthesia, weakness, numbness, sensory or motor deficits. Time Seen by Provider: 04/09/18 20:49 Chief Complaint (Nursing): Back Pain History Per: Patient History/Exam Limitations: no limitations Onset/Duration Of Symptoms: Days Current Symptoms Are (Timing): Still Present Quality Of Discomfort: "Pain" Previous Symptoms: Back Pain Associated Symptoms: None Exacerbating Factor(s): Nothing Recent travel outside of the [place]: No Additional History Per: Patient Past Medical History Reviewed: Historical Data, Nursing Documentation, Vital Signs Vital Signs: Last Vital Signs Temp 98.5 F 04/09/18 20:25 Pulse 87 04/09/18 20:25 Resp 16 04/09/18 20:25 BP 109/73 04/09/18 20:25 Pulse Ox 98 04/09/18 22:59 - Medical History PMH: Asthma, Back Problems (herniated disk), Kidney Stones, Chronic Kidney Disease, Sexually Transmitted Disease (Chalmydia) Surgical History: No Surg Hx Family History: States: Unknown Family Hx - Social History Hx Tobacco Use: No Hx Alcohol Use: Yes Hx Substance Use: Yes - Immunization History Hx Tetanus Toxoid Vaccination: Yes Hx Influenza Vaccination: No Hx Pneumococcal Vaccination: No Review Of Systems Constitutional: Negative for: Fever, Chills Cardiovascular: Negative for: Chest Pain Respiratory: Negative for: Shortness of Breath Gastrointestinal: Negative for: Vomiting, Abdominal Pain Genitourinary: Negative for: Incontinence Musculoskeletal: Positive for: Back Pain Skin: Negative for: Rash Neurological: Negative for: Weakness, Numbness Physical Exam - Physical Exam Appears: Non-toxic, No Acute Distress Skin: Normal Color, Warm, Dry Head: Atraumatic, Normacephalic Eye(s): bilateral: Normal Inspection, PERRL Neck: Normal ROM, Supple Chest: Symmetrical Cardiovascular: Rhythm Regular Respiratory: Normal Breath Sounds, No Rhonchi Gastrointestinal/Abdominal: Soft, No Tenderness Back: No CVA Tenderness, Paraspinal Tenderness (left paralumbar), Straight Leg Raising (at 40 degrees) Extremity: Normal ROM, No Tenderness, No Swelling Extremity: Bilateral: Atraumatic, Normal Color And Temperature Pulses: Left Dorsalis Pedis: Normal, Right Dorsalis Pedis: Normal Neurological/Psych: Oriented x3, Normal Speech, Normal Motor, Normal Sensation Gait: Steady ED Course And Treatment O2 Sat by Pulse Oximetry: 98 (On RA) Pulse Ox Interpretation: Normal Progress Note: Plan: - Toradol 30 mg IM. - Valium 5 mg PO. On reassessment, patient is resting comfortably, with improvement of back pain. Patient remains afebrile, with no bony tenderness, extremity numbness or weakness, or abdominal pain. Patient is ambulatory in the emergency department with no signs of discomfort. Patient was advised to follow up with physician/clinic in 1-2 days. Disposition Counseled Patient/Family Regarding: Diagnosis, Need For Followup, Rx Given - Disposition Referrals: [facility] at [facility] [Outside] Disposition: HOME/ ROUTINE Disposition Time: 22:01 Condition: STABLE Additional Instructions: Please follow up with PMD or in clinic Take meds as directed Return to ER if worse Prescriptions: Cyclobenzaprine [Cyclobenzaprine HCl] 10 mg PO HS #10 tab Naproxen [Naprosyn] 1 tab PO BID PRN #20 tab PRN Reason: Pain Instructions: Chronic Pain (DC) Forms: [facility] (Greek), Work Excuse - Clinical Impression Clinical Impression: Chronic back pain - 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 - Scribe Statement The provider has reviewed the documentation as recorded by the Scribe Elmer Denson All medical record entries made by the Scribe were at my direction and personally dictated by me. I have reviewed the chart and agree that the record accurately reflects my personal performance of the history, physical exam, medical decision making, and the department course for this patient. I have also personally directed, reviewed, and agree with the discharge instructions and disposition.
== END 2018-04-09 22:13 | disposition home or self-care (01) ==
LOC: C.ER 20:19
DX: G89.29 Other chronic pain (principal); M54.5 Low back pain
CPT/HCPCS: 96372; 99283; J1885

== ENCOUNTER 2018-04-25 21:56 | Emergency (ER) | payer MEDICAID ==
[2018-04-25 21:57] VITALS: BMI 37.8
--- NOTE | 2018-04-25 22:44 | C.PDOC ---
History Of Present Illness 33 year old male with PMH of chronic back pain and herniated disks presents to the ED with complaints of his usual lower back pain. Patient reports heavy lifting at work which may have worsened his pain. Patient took Naproxen tab last night with little relief. He reports calling PMD who is unable to see him until . He states when he gets shot here in ED feels better. Patient denies abdominal pain, diarrhea, urinary/bowel incontinence, saddle anesthesia, weakness, numbness, sensory or motor deficits. Time Seen by Provider: 04/25/18 22:33 Chief Complaint (Nursing): Back Pain History Per: Patient History/Exam Limitations: no limitations Onset/Duration Of Symptoms: Hrs Current Symptoms Are (Timing): Still Present Quality Of Discomfort: Unable To Describe Previous Symptoms: Back Pain, Chronic Pain Associated Symptoms: None Exacerbating Factor(s): Nothing Recent travel outside of the [place]: No Past Medical History Reviewed: Historical Data, Nursing Documentation, Vital Signs Vital Signs: Last Vital Signs Temp 98.4 F 04/25/18 22:26 Pulse 79 04/25/18 22:26 Resp 20 04/25/18 23:43 BP 131/70 04/25/18 22:26 Pulse Ox 98 04/26/18 00:03 - Medical History PMH: Asthma, Back Problems (herniated disk), Kidney Stones, Chronic Kidney Disease, Sexually Transmitted Disease (ChLamydia) Family History: States: Unknown Family Hx - Social History Hx Tobacco Use: No Hx Alcohol Use: Yes Hx Substance Use: Yes - Immunization History Hx Tetanus Toxoid Vaccination: Yes Hx Influenza Vaccination: No Hx Pneumococcal Vaccination: No Review Of Systems Gastrointestinal: Negative for: Abdominal Pain, Diarrhea Genitourinary: Negative for: Incontinence Musculoskeletal: Positive for: Back Pain Neurological: Negative for: Weakness, Numbness Physical Exam - Physical Exam Appears: Non-toxic Skin: Normal Color, Warm, Dry Head: Atraumatic, Normacephalic Eye(s): bilateral: Normal Inspection Cardiovascular: Rhythm Regular Respiratory: Normal Breath Sounds, No Rhonchi, No Wheezing Gastrointestinal/Abdominal: Soft, No Tenderness Back: No Vertebral Tenderness, Paraspinal Tenderness (Left paralumbar) Extremity: Normal ROM (x4) Neurological/Psych: Oriented x3, Normal Speech, Normal Motor, Normal Sensation Gait: Steady ED Course And Treatment O2 Sat by Pulse Oximetry: 98 (Room air) Pulse Ox Interpretation: Normal Medical Decision Making Medical Decision Making: Valium and toradol administered. On reevaluation, patient reports improvement of pain and is able to ambulate in the ER without any pain or difficulty, will discharge home with instructions to follow up with PMD as scheduled. Disposition Counseled Patient/Family Regarding: Diagnosis, Need For Followup, Rx Given - Disposition Disposition: HOME/ ROUTINE Disposition Time: 23:23 Condition: GOOD Additional Instructions: You can apply heat to area Take Tylenol 500mg for any pain Take pain medicine every 6-8 hours, with food to not upset stomach Take Flexeril every 8 hours as needed for muscular pain and spasm, caution may cause drowsiness Prescriptions: Cyclobenzaprine [Cyclobenzaprine HCl] 10 mg PO TID #30 tab Instructions: Low Back Pain in Adults Forms: Work Excuse - POA Present On Arrival: None - Clinical Impression Clinical Impression: Low back pain - 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 - Scribe Statement The provider has reviewed the documentation as recorded by the Scribkehinde Ulloa All medical record entries made by the Carlosibkehinde were at my direction and personally dictated by me. I have reviewed the chart and agree that the record accurately reflects my personal performance of the history, physical exam, medical decision making, and the department course for this patient. I have also personally directed, reviewed, and agree with the discharge instructions and disposition.
[2018-04-25 22:57] VITALS: BP 131/70; PULSE 79; RESP 20; TEMP 98.4; O2SAT 98
== END 2018-04-25 23:43 | disposition home or self-care (01) ==
LOC: C.ER 21:56
DX: M54.5 Low back pain (principal)
CPT/HCPCS: 96372; 99284; J1885

== ENCOUNTER 2018-06-08 17:02 | Emergency (ER) | payer SELFPAY ==
[2018-06-08 17:02] VITALS: BMI 37.8
[2018-06-08 17:12] VITALS: TEMP 98; O2SAT 98
[2018-06-08] MEDS ORDERED: cefTRIAXone (Rocephin) 250 mg Inj IM STA (17:34)
--- NOTE | 2018-06-08 17:43 | C.PDOC ---
Time Seen by Provider: 06/08/18 17:28 Chief Complaint (Nursing): Male Genitourinary Past Medical History Vital Signs: Last Vital Signs Temp 98 F 06/08/18 17:10 Pulse 90 06/08/18 17:10 Resp 16 06/08/18 17:10 BP 124/80 06/08/18 17:12 Pulse Ox 98 06/08/18 17:10 - Medical History PMH: Asthma, Back Problems (herniated disk), Kidney Stones, Chronic Kidney Disease, Sexually Transmitted Disease (Chalmydia) Family History: States: Unknown Family Hx - Social History Hx Tobacco Use: No Hx Alcohol Use: Yes Hx Substance Use: Yes - Immunization History Hx Tetanus Toxoid Vaccination: Yes Hx Influenza Vaccination: No Hx Pneumococcal Vaccination: No ED Course And Treatment O2 Sat by Pulse Oximetry: 98 Disposition Counseled Patient/Family Regarding: Studies Performed, Diagnosis, Need For Followup, Rx Given - Disposition Disposition: HOME/ ROUTINE Disposition Time: 17:43 Condition: STABLE Additional Instructions: Please contact Dr. Melgoza on Monday for your results. [phone] Prescriptions: Doxycycline Hyclate 200 mg PO BID #20 tablet.dr Forms: [employer] (Malay), General Discharge Instructions - POA Present On Arrival: None - Clinical Impression Clinical Impression: Dysuria, Penile discharge
[2018-06-08 18:13] VITALS: BP 121/78; PULSE 88; RESP 18
[2018-06-08 18:13] LABS: URINE BILIRUBIN NEGATIVE (NEGATIVE); URINE BLOOD NEGATIVE (NEGATIVE); URINE CLARITY Clear (Clear); URINE COLOR Yellow (YELLOW); URINE GLUCOSE (UA) NORMAL (Normal); URINE LEUKOCYTE ESTERASE NEG Leu/uL (Negative); URINE PROTEIN NEGATIVE (NEGATIVE)
== END 2018-06-08 18:13 | disposition home or self-care (01) ==
LOC: C.ER 17:02
DX: R30.0 Dysuria (principal); R36.9 Urethral discharge, unspecified
CPT/HCPCS: 81001; 87086; 87491; 87591; 96372; 99284; J0696

== ENCOUNTER 2018-08-18 22:16 | Emergency (ER) | payer SELFPAY ==
[2018-08-18 22:17] VITALS: BMI 37.8
[2018-08-18 22:42] VITALS: TEMP 98.6
--- NOTE | 2018-08-18 23:46 | C.PDOC ---
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 Patient denies any change in sensation and other injury. Time Seen by Provider: 08/18/18 23:29 Chief Complaint (Nursing): Lower Extremity Problem/Injury History Per: Patient History/Exam Limitations: no limitations Onset/Duration Of Symptoms: Hrs (x2) Current Symptoms Are (Timing): Still Present - Knee Description Of Injury: Struck Against Object Past Medical History Reviewed: Historical Data, Nursing Documentation, Vital Signs Vital Signs: Last Vital Signs Temp 98.6 F 08/18/18 22:37 Pulse 80 08/18/18 22:37 Resp 20 08/18/18 22:37 BP 144/84 08/18/18 22:37 Pulse Ox 98 08/18/18 22:37 - Medical History PMH: Asthma, Back Problems (herniated disk), Kidney Stones, Chronic Kidney Disease, Sexually Transmitted Disease (Chalmydia) Family History: States: Unknown Family Hx - Social History Hx Tobacco Use: No Hx Alcohol Use: Yes Hx Substance Use: Yes - Immunization History Hx Tetanus Toxoid Vaccination: Yes Hx Influenza Vaccination: No Hx Pneumococcal Vaccination: No Review Of Systems Except As Marked, All Systems Reviewed And Found Negative. Musculoskeletal: Positive for: Other (left knee pain) Neurological: Negative for: Other (change in sensation) Physical Exam - Physical Exam Appears: Well, Non-toxic, No Acute Distress Skin: Normal Color, Warm, Dry Head: Normacephalic Eye(s): bilateral: Normal Inspection, EOMI Nose: Normal Oral Mucosa: Moist Neck: Normal ROM, Supple Chest: Symmetrical Respiratory: No Accessory Muscle Use Extremity: Normal ROM (x4), Tenderness (lateral aspect of knee ), No Calf Tenderness, No Deformity, Swelling (mild to the left knee) Pulses: Left Dorsalis Pedis: Normal, Right Dorsalis Pedis: Normal Neurological/Psych: Oriented x3, Normal Speech ED Course And Treatment O2 Sat by Pulse Oximetry: 98 (RA) Pulse Ox Interpretation: Normal Progress Note: Impression: left knee pain. plans: -- XR left knee. -- toradol. -- tylenol. reassess: Patient is resting comfortably, sleeping. Knee brace is applied by medical record technician.Pt declined crutches. Patient is instructed RICE and to f/u with orthropedics. Disposition - Disposition Referrals: Yoanna Nix MD [Staff Provider] - Disposition: HOME/ ROUTINE Disposition Time: 23:44 Condition: STABLE Additional Instructions: Rest, ice and elevate the area. Follow up with the bone doctor in 1-2 days. Return to ER if symptoms persist or worsen. Prescriptions: Naproxen [Naprosyn] 1 tab PO BID PRN #20 tab PRN Reason: Pain Instructions: Knee Pain (DC) Forms: [employer] (Filipino), Work Excuse - Clinical Impression Clinical Impression: Knee pain - PA / ORDER ENTRY / Resident Statement / has reviewed & agrees with the documentation as recorded. - Scribe Statement The provider has reviewed the documentation as recorded by the Rogers Patton Do All medical record entries made by the Scribe were at my direction and pers onally dictated by me. I have reviewed the chart and agree that the record accurately reflects my personal performance of the history, physical exam, medical decision making, and the department course for this patient. I have also personally directed, reviewed, and agree with the discharge instructions and disposition.
[2018-08-19 00:07] VITALS: BP 138/78; PULSE 76; RESP 18
[2018-08-19 05:04] VITALS: O2SAT 98
--- NOTE | 2018-08-19 08:50 | RAD ---
PROCEDURE: Left Knee Radiographs. HISTORY: Trauma COMPARISON: No prior. FINDINGS: BONES: No acute displaced fracture. JOINTS: No dislocation. JOINT EFFUSION: Probable small suprapatellar joint effusion. OTHER FINDINGS: None. IMPRESSION: Probable small suprapatellar joint effusion. No acute displaced fracture or dislocation. If symptoms persist, or if there is continued clinical concern, x-ray follow-up in 7-10 days should be considered.
== END 2018-08-19 00:07 | disposition home or self-care (01) ==
LOC: C.ER 22:16
DX: M25.562 Pain in left knee (principal)
CPT/HCPCS: 73562; 96372; 99284; J1885

== ENCOUNTER 2018-08-20 19:06 | Emergency (ER) | payer SELFPAY ==
[2018-08-20 19:07] VITALS: BMI 37.8
[2018-08-20 19:52] VITALS: BP 139/89; PULSE 78; RESP 20; TEMP 99; O2SAT 99
--- NOTE | 2018-08-20 20:18 | C.PDOC ---
History Of Present Illness 33 year old male presents to the ED for evaluation of sore throat for 2 days. Patient also reports subjective fever and body aches. Denies vomiting, nausea, diarrhea, and any other associated symptoms. Time Seen by Provider: 08/20/18 20:06 Chief Complaint (Nursing): ENT Problem History Per: Patient History/Exam Limitations: no limitations Onset/Duration Of Symptoms: Days Current Symptoms Are (Timing): Still Present Past Medical History Reviewed: Historical Data, Nursing Documentation, Vital Signs Vital Signs: Last Vital Signs Temp 99 F 08/20/18 19:49 Pulse 78 08/20/18 19:49 Resp 20 08/20/18 19:49 BP 139/89 08/20/18 19:49 Pulse Ox 99 08/20/18 19:49 - Medical History PMH: Asthma, Back Problems (herniated disk), Kidney Stones, Chronic Kidney Disease, Sexually Transmitted Disease (Chalmydia) Family History: States: Unknown Family Hx - Social History Hx Tobacco Use: No Hx Alcohol Use: Yes Hx Substance Use: Yes - Immunization History Hx Tetanus Toxoid Vaccination: Yes Hx Influenza Vaccination: No Hx Pneumococcal Vaccination: No Review Of Systems Constitutional: Positive for: Fever (subjective.), Other (body aches.) ENT: Positive for: Throat Pain (sore throat.) Gastrointestinal: Negative for: Nausea, Vomiting, Diarrhea Physical Exam - Physical Exam Appears: Non-toxic Skin: Normal Color, Warm, Dry Head: Atraumatic, Normacephalic Eye(s): bilateral: Normal Inspection Ear(s): Bilateral: Normal Nose: Normal, No Flaring Oral Mucosa: Moist Throat: Erythema (mild erythema.) Neck: Normal ROM, Supple Cardiovascular: Rhythm Regular, No Murmur Respiratory: Normal Breath Sounds, No Rales, No Rhonchi, No Wheezing Neurological/Psych: Oriented x3, Normal Speech Gait: Steady ED Course And Treatment O2 Sat by Pulse Oximetry: 99 (RA) Pulse Ox Interpretation: Normal Progress Note: Patient stable for discharge home. Prescribed Benzocaine/Menthol and Naproxen. Medical Decision Making Medical Decision Making: Patient remained afebrile alert and oriented with stable vital signs during ER evaluation. No clinical signs of peritonsillar abscess or strep pharyngitis. Disposition Counseled Patient/Family Regarding: Diagnosis, Need For Followup, Rx Given - Disposition Referrals: [facility] [Outside] Disposition: HOME/ ROUTINE Disposition Time: 20:19 Condition: STABLE Additional Instructions: Take Tylenol or Motrin alternating every 4-6 hours for Fever 100.4F or higher. Rest and drink plenty of fluids to prevent dehydration. Try vanilla ice cream to improve eating/drinking, this is cold soothing and tastes good. 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 - Scribe Statement The provider has reviewed the documentation as recorded by the Scribe (Clara Kong) All medical record entries made by the Scribe were at my direction and personally dictated by me. I have reviewed the chart and agree that the record accurately reflects my personal performance of the history, physical exam, medical decision making, and the department course for this patient. I have also personally directed, reviewed, and agree with the discharge instructions and disposition.
== END 2018-08-20 21:04 | disposition home or self-care (01) ==
LOC: C.ER 19:06
DX: J02.9 Acute pharyngitis, unspecified (principal)

== ENCOUNTER 2018-09-09 17:12 | Emergency (ER) | payer SELFPAY ==
[2018-09-09 17:29] VITALS: BMI 35.1
--- NOTE | 2018-09-09 18:10 | C.PDOC ---
History Of Present Illness 33 year old male presents to the ED complaining of right shoulder pain intermittently for one week but worse for the past 2 days. Reports his shoulder was sore and then he lifted up a table and the pain became worse. Denies any numbness or tingling. States he took Tylenol with minimal relief. Time Seen by Provider: 09/09/18 18:04 Chief Complaint (Nursing): Upper Extremity Problem/Injury History Per: Patient History/Exam Limitations: no limitations Onset/Duration Of Symptoms: Days Current Symptoms Are (Timing): Still Present Quality: "Pain" Exacerbating Factor(s): Movement Past Medical History Reviewed: Historical Data, Nursing Documentation, Vital Signs Vital Signs: Last Vital Signs Temp 97.3 F L 09/09/18 17:29 Pulse 79 09/09/18 17:29 Resp 20 09/09/18 17:29 BP 102/70 09/09/18 17:29 Pulse Ox 97 09/09/18 17:29 - Medical History PMH: Asthma, Back Problems (herniated disk), Kidney Stones, Chronic Kidney Disease, Sexually Transmitted Disease (Chalmydia) Other Surgeries: hx of surgeries Family History: States: No Known Family Hx - Social History Hx Tobacco Use: No Hx Alcohol Use: Yes Hx Substance Use: Yes - Immunization History Hx Tetanus Toxoid Vaccination: Yes Hx Influenza Vaccination: No Hx Pneumococcal Vaccination: No Review Of Systems Except As Marked, All Systems Reviewed And Found Negative. Musculoskeletal: Positive for: Shoulder Pain (right) Physical Exam - Physical Exam Appears: Non-toxic Skin: Warm, Dry Head: Normacephalic Eye(s): bilateral: Normal Inspection Nose: Normal Oral Mucosa: Moist Neck: Supple Chest: Symmetrical Extremity: No Normal ROM (limited due to pain), Tenderness (right shoulder), Capillary Refill (less than 2 sec to right shoulder), No Deformity Pulses: Left Brachial: Normal, Right Brachial: Normal, Left Radial: Normal, Right Radial: Normal Neurological/Psych: Oriented x3, Normal Speech, No Normal Motor (due to pain), Normal Sensation Gait: Steady ED Course And Treatment O2 Sat by Pulse Oximetry: 97 (RA) Pulse Ox Interpretation: Normal - Other Rad XR right shoulder X-Ray: Interpreted by Me, Viewed By Me Interpretation: No acute fracture/dislocation. Calcification noted. Medical Decision Making Medical Decision Making: Plan - Toradol 60mg IM - XR right shoulder Disposition Counseled Patient/Family Regarding: Studies Performed, Diagnosis, Need For Followup, Rx Given - Disposition Referrals: Boby Carter III, MD [Staff Provider] - Disposition: HOME/ ROUTINE Disposition Time: 18:58 Condition: STABLE Additional Instructions: FOLLOW UP WITH DR. CARTER IN 1-2 DAYS FOR RE-EVALUATION AND OFFICIAL XRAY REPORT. IF SYMPTOMS GET WORSE OR ANY NEW CONCERNING SYMPTOMS DEVELOP RETURN TO ED. 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 - Scribe Statement The provider has reviewed the documentation as recorded by the Scribe Jimena Castorena All medical record entries made by the Scribe were at my direction and personally dictated by me. I have reviewed the chart and agree that the record accurately reflects my personal performance of the history, physical exam, medical decision making, and the department course for this patient. I have also personally directed, reviewed, and agree with the discharge instructions and disposition.
[2018-09-09 19:14] VITALS: BP 119/73; PULSE 78; RESP 18; TEMP 98
[2018-09-09 22:11] VITALS: O2SAT 97
--- NOTE | 2018-09-10 09:45 | RAD ---
Date of service: 09/09/2018 PROCEDURE: Radiographs of the Right Shoulder HISTORY: PAIN COMPARISON: No prior. FINDINGS: BONES: Normal. No fracture. JOINTS: Minor degenerative changes right acromioclavicular joint. SOFT TISSUES: There is a small elliptical shaped calcific density within the soft tissues adjacent to the greater tuberosity likely representing calcific tendinitis or bursitis. OTHER FINDINGS: None. IMPRESSION: No evidence of acute displaced fracture nor dislocation. Changes of calcific tendinitis or bursitis.
== END 2018-09-09 19:14 | disposition home or self-care (01) ==
LOC: C.ER 17:12
DX: S43.402A Unspecified sprain of left shoulder joint, initial encounter (principal); X50.0XXA Overexertion from strenuous movement or load, initial encounter; X50.9XXA Other and unspecified overexertion or strenuous movements or postures, initial encounter
CPT/HCPCS: 73030; 96372; 99284; J1885

== ENCOUNTER 2018-10-27 12:42 | Emergency (ER) | payer OTHER ==
[2018-10-27 12:42] VITALS: BMI 35.1
[2018-10-27 12:49] VITALS: BP 125/84; PULSE 63; TEMP 97.5; O2SAT 98
--- NOTE | 2018-10-27 13:54 | C.PDOC ---
History Of Present Illness 33 year old male presents to the ED for evaluation of yellow and green penile discharge and dysuria for 1 month. The patient reports noticing the discharge after masturbating associated with pressure and discomfort and notes he has not been sexually active for 4 months. He reports prior visit to a local hospital where he was tested for gonorrhea/chlamydia, patient has the results in the ED which are negative. Denies testicular pain, fever, nausea, vomiting, any other associated symptoms. Patient has negative results with him. Time Seen by Provider: 10/27/18 13:06 Chief Complaint (Nursing): Male Genitourinary History Per: Patient History/Exam Limitations: no limitations Onset/Duration Of Symptoms: Days Current Symptoms Are (Timing): Still Present Past Medical History Reviewed: Historical Data, Nursing Documentation, Vital Signs Vital Signs: Last Vital Signs Temp 97.5 F L 10/27/18 12:45 Pulse 63 10/27/18 12:45 Resp 20 10/27/18 12:45 BP 125/84 10/27/18 12:45 Pulse Ox 98 10/27/18 12:45 - Medical History PMH: Asthma, Back Problems (herniated disk), Kidney Stones, Chronic Kidney Disease, Sexually Transmitted Disease (Chalmydia) Family History: States: Unknown Family Hx - Social History Hx Tobacco Use: No Hx Alcohol Use: Yes Hx Substance Use: Yes - Immunization History Hx Tetanus Toxoid Vaccination: Yes Hx Influenza Vaccination: No Hx Pneumococcal Vaccination: No Review Of Systems Except As Marked, All Systems Reviewed And Found Negative. Genitourinary: Positive for: Dysuria, Penile Discharge (yellow and green.) Physical Exam - Physical Exam Appears: Well Skin: Normal Color, Warm, Dry Head: Atraumatic, Normacephalic Eye(s): bilateral: Normal Inspection, PERRL, EOMI Oral Mucosa: Moist Neck: Normal ROM, Supple Chest: Symmetrical Cardiovascular: Rhythm Regular, No Murmur Respiratory: Normal Breath Sounds, No Rales, No Rhonchi, No Wheezing Gastrointestinal/Abdominal: Normal Exam, Soft, No Tenderness Male Genital: Normal Inspection, No Testicular Swelling, No Scrotal Swelling Extremity: Bilateral: Atraumatic, Normal Color And Temperature, Normal ROM Neurological/Psych: Oriented x3, Normal Speech ED Course And Treatment O2 Sat by Pulse Oximetry: 98 (RA) Pulse Ox Interpretation: Normal Medical Decision Making Medical Decision Making: Assessment: dysuria, prostatalgia Plan: -Chlamydia/GC RNA Cipro Motrin Urinalysis Progress/Update: Patient refused rectal exam. Treated with prison cipro and pain medication. Patient advised to follow up with urologist in 2 days. Disposition Counseled Patient/Family Regarding: Studies Performed, Diagnosis, Need For Followup, Rx Given - Disposition Referrals: Nithin Rowe MD [Staff Provider] - Disposition: HOME/ ROUTINE Disposition Time: 13:52 Condition: STABLE Additional Instructions: follow up with urology within 2 days call to make an appointment take medications as prescribed return to ER if symptoms worsens or progress Prescriptions: Ciprofloxacin HCl [Cipro] 500 mg PO BID 21 Days #42 tab Naproxen [Naprosyn] 500 mg PO BID PRN #16 tab PRN Reason: Pain, Moderate (4-7) Instructions: Dysuria, Adult (DC) Forms: [employer] (Ukrainian), General Discharge Instructions - Clinical Impression Clinical Impression: Dysuria, Prostatalgia - Scribe Statement The provider has reviewed the documentation as recorded by the Scribe (Clara Kong) Provider Attestation: All medical record entries made by the Scribe were at my direction and personally dictated by me. I have reviewed the chart and agree that the record accurately reflects my personal performance of the history, physical exam, medical decision making, and the department course for this patient. I have also personally directed, reviewed, and agree with the discharge instructions and disposition.
[2018-10-27 13:55] LABS: URINE BILIRUBIN NEGATIVE (NEGATIVE); URINE BLOOD NEGATIVE (NEGATIVE); URINE CLARITY Clear (Clear); URINE COLOR Yellow (YELLOW); URINE GLUCOSE (UA) NORMAL (Normal); URINE HYALINE CAST 0-2 /lpf (0-2); URINE LEUKOCYTE ESTERASE TRACE Leu/uL (Negative); URINE PROTEIN NEGATIVE (NEGATIVE); URINE UROBILINOGEN NORMAL mg/dL (0.2-1.0)
[2018-10-27 14:11] VITALS: RESP 18
== END 2018-10-27 14:09 | disposition home or self-care (01) ==
LOC: C.ER 12:42
DX: R30.0 Dysuria (principal); N42.81 Prostatodynia syndrome

== ENCOUNTER 2019-01-06 20:13 | Emergency (ER) | payer SELFPAY ==
[2019-01-06 20:13] VITALS: BMI 35.1
[2019-01-06 20:23] VITALS: BP 110/70; PULSE 84; RESP 16; TEMP 97; O2SAT 99
--- NOTE | 2019-01-06 20:43 | C.PDOC ---
History Of Present Illness 33 y/o male comes in to ED for right upper tooth pain since earlier today. Patient states he was eating something when his filling in the right upper molar fell off, and had pain since. Patient denies any fever, trauma, discharge, or bleeding. Time Seen by Provider: 01/06/19 20:25 Chief Complaint (Nursing): Dental Pain History Per: Patient History/Exam Limitations: no limitations Onset/Duration Of Symptoms: Hrs Current Symptoms Are (Timing): Still Present Past Medical History Reviewed: Historical Data, Nursing Documentation, Vital Signs Vital Signs: Last Vital Signs Temp 97 F L 01/06/19 20:20 Pulse 84 01/06/19 20:20 Resp 16 01/06/19 20:20 BP 110/70 01/06/19 20:20 Pulse Ox 99 01/06/19 20:20 - Medical History PMH: Asthma, Back Problems (herniated disk), Kidney Stones, Chronic Kidney Disease, Sexually Transmitted Disease (Chalmydia) Family History: States: No Known Family Hx - Social History Hx Tobacco Use: No Hx Alcohol Use: Yes Hx Substance Use: Yes - Immunization History Hx Tetanus Toxoid Vaccination: Yes Hx Influenza Vaccination: No Hx Pneumococcal Vaccination: No Review Of Systems Constitutional: Negative for: Fever, Chills ENT: Positive for: Other (Right upper tooth pain, no discharge or bleeding) Neurological: Negative for: Headache Physical Exam - Physical Exam Appears: Non-toxic, In Acute Distress (moderate), Other (speaking full sentences) Skin: Warm, Dry Head: Atraumatic, Normacephalic Eye(s): bilateral: Normal Inspection Oral Mucosa: Moist Tongue: Normal Appearing Lips: Normal Appearing Teeth: Other (Tooth #2 has large caries and is tender to palpation) Gingiva: No Erythema, No Swelling Neck: Supple Cardiovascular: Rhythm Regular, No Murmur Respiratory: Normal Breath Sounds, No Rales, No Rhonchi, No Wheezing Extremity: Bilateral: Atraumatic, Normal Color And Temperature Neurological/Psych: Oriented x3, Normal Speech ED Course And Treatment O2 Sat by Pulse Oximetry: 99 (RA) Pulse Ox Interpretation: Normal Progress Note: Patient was given toradol and viscous lidocaine. Will be discharged home. Patient is to follow up with dentist within 1 week. Disposition Counseled Patient/Family Regarding: Diagnosis, Need For Followup, Rx Given - Disposition Referrals: [facility] [Outside] Disposition: HOME/ ROUTINE Disposition Time: 21:00 Condition: STABLE Additional Instructions: FOLLOW UP WITH YOUR DENTIST WITHIN 1 WEEK USE PAIN MEDICATIONS NEEDED RETURN TO ER IF SYMPTOMS WORSEN Prescriptions: Lidocaine 2% Viscous 10 ml MM Q6 PRN #1 bottle PRN Reason: PAIN Naproxen [Naprosyn] 1 tab PO BID PRN #25 tab PRN Reason: Pain traMADol [Ultram] 50 mg PO BID PRN #12 tab PRN Reason: pain Instructions: Dental Pain (DC) Forms: [employer] (Albanian), Work Excuse Print Language: VATICAN CITIZEN - Clinical Impression Clinical Impression: Pain, dental - Scribe Statement The provider has reviewed the documentation as recorded by the Rogers Silverio Provider Attestation: All medical record entries made by the Rogers were at my direction and personally dictated by me. I have reviewed the chart and agree that the record accurately reflects my personal performance of the history, physical exam, medical decision making, and the department course for this patient. I have also personally directed, reviewed, and agree with the discharge instructions and disposition.
== END 2019-01-06 21:15 | disposition home or self-care (01) ==
LOC: C.ER 20:13
DX: K08.89 Other specified disorders of teeth and supporting structures (principal)
CPT/HCPCS: 96372; 99283; J1885

== ENCOUNTER 2019-02-15 14:39 | Emergency (ER) | payer SELFPAY ==
[2019-02-15 14:57] VITALS: BMI 37.5
--- NOTE | 2019-02-15 15:43 | C.PDOC ---
History Of Present Illness 33-year-old male, whose PMHx includes asthma, presents to the ED for evaluation of sore throat, nasal congestion and dry cough that had gradual onset over the past week. Patient denies high fever, lethargy, drooling, neck pain, chills, bodyaches, chest pain, dyspnea, SOB, wheezing, abdominal pain, V/D, UTI symptoms, rash, recent travel or known sick contacts. Ambulates to ED for evaluation, not in any apparent distress. Time Seen by Provider: 02/15/19 15:17 Chief Complaint (Nursing): ENT Problem History Per: Patient History/Exam Limitations: None Onset/Duration Of Symptoms: Gradual, Other (one week ) Past Medical History Reviewed: Historical Data, Nursing Documentation, Vital Signs Vital Signs: Last Vital Signs Temp 98.4 F 02/15/19 14:57 Pulse 76 02/15/19 14:57 Resp 16 02/15/19 14:57 BP 125/86 02/15/19 14:57 Pulse Ox 97 02/15/19 14:57 - Medical History PMH: Asthma, Back Problems (herniated disk), Kidney Stones, Chronic Kidney Disease, Sexually Transmitted Disease (Chalmydia) Surgical History: No Surg Hx Family History: States: Unknown Family Hx - Social History Hx Tobacco Use: No Hx Alcohol Use: Yes Hx Substance Use: Yes - Immunization History Hx Tetanus Toxoid Vaccination: Yes Hx Influenza Vaccination: No Hx Pneumococcal Vaccination: No Review Of Systems Constitutional: Negative for: Fever, Chills, Other (lethargy ) ENT: Positive for: Nose Congestion, Throat Pain, Other (drooling ) Cardiovascular: Negative for: Chest Pain Respiratory: Positive for: Cough. Negative for: Shortness of Breath, Sputum, Wheezing Gastrointestinal: Negative for: Nausea, Vomiting, Abdominal Pain, Diarrhea Genitourinary: Negative for: Dysuria, Frequency, Hematuria Musculoskeletal: Negative for: Neck Pain, Other (body aches ) Skin: Negative for: Rash Physical Exam - Physical Exam Appears: Well, Non-toxic, No Acute Distress Skin: Normal Color, Warm, Dry, No Rash Head: Normacephalic Eye(s): bilateral: PERRL Ear(s): Bilateral: Normal Nose: No Flaring, No Discharge, Other (nasal congestion bilterally ) Oral Mucosa: Moist, No Drooling Lips: Normal Appearing Throat: Erythema, No Exudate, No Drooling, Other (pharyngeal and tonsillar erythema and edema ) Neck: Trachea Midline, No Midline Cervical Tenderness, No Paracervical Tenderness, Supple, No Other (meningeal sign ) Cardiovascular: Rhythm Regular, No Murmur, No JVD Respiratory: No Decreased Breath Sounds, No Accessory Muscle Use, No Rales, No Rhonchi, No Stridor, No Wheezing Gastrointestinal/Abdominal: Soft, No Tenderness, No Distention, No Guarding Extremity: Normal ROM, No Pedal Edema, No Deformity, No Swelling Neurological/Psych: Oriented x3, Normal Speech ED Course And Treatment O2 Sat by Pulse Oximetry: 97 (on RA) Pulse Ox Interpretation: Normal Progress Note: On re-eval, pt is afebrile, hemodynamicaly stable. Non-toxic, tolerae Po well in ED. ENT: exam c/w acute pharyngitis uvula midline, no edema. neck: Supple, (-) meningeal sign. Lungs: CTA B/L, BS equal B/L. Pt advised. ref. to f/u with PM Din 2-3 days for re-eval. return to Ed if any new changes. Disposition Counseled Patient/Family Regarding: Diagnosis, Need For Followup, Rx Given - Disposition Referrals: [facility] at [facility] [place] [Outside] Disposition: HOME/ ROUTINE Disposition Time: 15:41 Condition: STABLE Additional Instructions: Encourage fluids Take medication as prescribed Warm salty water throat gurgles twice daily for 5 minutes Follow up with PMD in 2-3 days for re-evaluation. Return to ED if any worsening or new changes. 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 - Scribe Statement The provider has reviewed the documentation as recorded by the Scribe (Angeles Villalobos) All medical record entries made by the Scribe were at my direction and personally dictated by me. I have reviewed the chart and agree that the record accurately reflects my personal performance of the history, physical exam, medical decision making, and the department course for this patient. I have also personally directed, reviewed, and agree with the discharge instructions and disposition.
[2019-02-15 15:53] VITALS: BP 126/80; PULSE 82; RESP 18; TEMP 98.1
[2019-02-15 17:13] VITALS: O2SAT 97
== END 2019-02-15 15:49 | disposition home or self-care (01) ==
LOC: C.ER 14:39
DX: J02.9 Acute pharyngitis, unspecified (principal)